=== PATIENT | male | born 2000 | race American Indian/Alaskan Native ===

== ENCOUNTER 2020-12-01 10:41 | Emergency (ER) | payer SELFPAY ==
[~2020-12-01] VITALS: Ht 182.9 cm; Wt 72.7 kg
[~2020-12-01 10:41] MED LIST: AMOXICILLIN 50500 MG PO; AMOXICILLIN 8751 TAB PO; CATAPRES; CATAPRES 0.1MG0.1 MG PO; CORTISPORIN EAR10 ML OT; NO HOME MEDICATIONS; NORCO 325 MG-51 TAB PO; NYSTATIN100000 U/M PO; STRATTERA60 MG PO; TUSS PO
[2020-12-01 11:45] VITALS: TEMP 98.7
[2020-12-01] MEDS ORDERED: PERCOCET 325 MG1 TA2 PO (12:16)
[2020-12-01 12:55] VITALS: BP 112/76; PULSE 75
== END 2020-12-01 12:55 | disposition home or self-care (01) ==
LOC: COL.ER 10:41
DX: S42.031A Displaced fracture of lateral end of right clavicle, initial encounter for closed fracture (principal); R55 Syncope and collapse; J45.909 Unspecified asthma, uncomplicated; V29.9XXA Motorcycle rider (driver) (passenger) injured in unspecified traffic accident, initial encounter

== ENCOUNTER 2021-05-22 10:20 | Emergency (ER) | payer SELFPAY ==
[~2021-05-22] VITALS: Ht 180.3 cm; Wt 106.6 kg
[~2021-05-22 10:20] MED LIST changes: +PERCOCET 325 MG1 TA2 PO
[2021-05-22 10:46] VITALS: TEMP 98.3
[2021-05-22 11:43] LABS: STREP SCREEN NEGATIVE
[2021-05-22 12:45] VITALS: BP 129/85; PULSE 103
[2021-05-23] MEDS ORDERED: OMNICEF 300MG300 MG PO (19:41)
== END 2021-05-22 12:45 | disposition home or self-care (01) ==
LOC: COL.ER 10:20
PROVIDERS: Nurse Practitioner
DX: J06.9 Acute upper respiratory infection, unspecified (principal); H61.21 Impacted cerumen, right ear; J45.909 Unspecified asthma, uncomplicated; F17.210 Nicotine dependence, cigarettes, uncomplicated; Z20.822 Contact with and (suspected) exposure to COVID-19
CPT/HCPCS: J8540

== ENCOUNTER 2021-10-29 18:17 | Emergency (ER) | payer SELFPAY ==
[~2021-10-29] VITALS: Ht 180.3 cm; Wt 90.9 kg
[~2021-10-29 18:17] MED LIST changes: +OMNICEF 300MG300 MG PO
[2021-10-29 18:39] VITALS: BP 110/70; PULSE 96; TEMP 98.1
== END 2021-10-29 20:35 | disposition home or self-care (01) ==
LOC: COL.ER 18:17
DX: S20.211A Contusion of right front wall of thorax, initial encounter (principal); F17.200 Nicotine dependence, unspecified, uncomplicated; Z28.310 Unvaccinated for COVID-19; W50.0XXA Accidental hit or strike by another person, initial encounter
CPT/HCPCS: A9284

== ENCOUNTER 2024-04-04 19:39 | Emergency (ER) | payer SELFPAY ==
[~2024-04-04] VITALS: Ht 182.9 cm; Wt 79.5 kg
[2024-04-04 19:48] VITALS: TEMP 98
[2024-04-04] MEDS ORDERED: fentaNYL 50 MCG/ML 2 ML VIAL IV ONE (20:45)
[2024-04-04] MEDS ORDERED: Home HYDROcodone/Acetaminophen 5/325 MG #4 TABS/PACK PO ONE (22:15)
[2024-04-04 22:58] VITALS: BP 150/87; PULSE 102
== END 2024-04-04 22:48 | disposition home or self-care (01) ==
LOC: COL.ER 19:39
DX: S43.004A Unspecified dislocation of right shoulder joint, initial encounter (principal); F17.200 Nicotine dependence, unspecified, uncomplicated; V03.92XA Pedestrian on skateboard injured in collision with car, pick-up truck or van, unspecified whether traffic or nontraffic accident, initial encounter; Y93.51 Activity, roller skating (inline) and skateboarding; Y92.410 Unspecified street and highway as the place of occurrence of the external cause
CPT/HCPCS: J2704; J3010